=== PATIENT | female | born 1995 | race Caucasian/White ===

== ENCOUNTER 2019-01-19 10:13 | Inpatient (IN) | payer MEDICAID ==
[2019-01-19] MEDS: LACTATED RINGER'S 1,000 ML IV (10:54)
[2019-01-19 10:56] LABS: ADD MAN DIFF? NO
[2019-01-19] MEDS ORDERED: CARBOPROST 250 MCG INJ IM ×2 (11:00→13:00)
[2019-01-19] MEDS ORDERED: OXYTOCIN 30 UNITS/LR 500 ML IV ×2 (11:00→13:00)
[2019-01-19] MEDS ORDERED: CEFAZOLIN 2 GM/50 ML (PMX) 50 ML IVPB (11:00)
[2019-01-19] MEDS ORDERED: METHYLERGONOVINE 0.2 MG INJ IM ×2 (11:00→13:00)
[2019-01-19] MEDS ORDERED: MISOPROSTOL 200 MCG TAB PR ×2 (11:00→13:00)
[2019-01-19 11:05] LABS: WHITE BLOOD COUNT 9.8 10^3/ul (4.8-10.8)
[2019-01-19 11:05] LABS: BASOPHIL # 0.1 10^3/ul (0.0-0.1); BASOPHILS % 0.5 % (0.0-2.0); EOSINOPHILS # 0.1 10^3/ul (0.0-0.5); EOSINOPHILS % 1.4 % (0.0-7.0); HEMATOCRIT 36.2 % (37.0-47.0); HEMOGLOBIN 12.2 g/dl (12.0-16.0); LYMPHOCYTES # 1.8 10^3/ul (0.8-2.9); LYMPHOCYTES % 17.9 % (15.0-51.0); MEAN CORPUSCULAR HEMOGLOBIN 27.4 pg (29.0-33.0); MEAN CORPUSCULAR HGB CONC 33.7 g/dl (32.0-37.0); MEAN CORPUSCULAR VOLUME 81.2 fl (82.0-101.0); MEAN PLATELET VOLUME 10.4 fl (7.4-10.4); MONOCYTE # 1.2 10^3/ul (0.3-0.9); MONOCYTES % 11.7 % (0.0-11.0); NEUTROPHIL # 6.6 10^3/ul (1.6-7.5); PLATELET COUNT 229 10^3/UL (140-415); RED BLOOD COUNT 4.46 10^6/ul (4.20-5.40); RED CELL DISTRIBUTION WIDTH 13.4 % (11.5-14.5)
[2019-01-19 11:20] LABS: INR 0.88; PARTIAL THROMBOPLASTIN TIME 21.8 Sec (23.0-35.0); PT RATIO 0.9
[2019-01-19] MEDS ORDERED: OXYTOCIN 30 UNITS/LR 500 ML BAG IV (12:00)
[2019-01-19] MEDS ORDERED: PHENYLephrine (100 MCG/ML) 10ML SYG (12:00)
[2019-01-19] MEDS ORDERED: EPHEDrine 25 MG/5 ML SYG (12:00)
[2019-01-19] MEDS ORDERED: CEFAZOLIN 1 GM INJ (12:00)
[2019-01-19] MEDS ORDERED: morphine SULFATE/PF (10 MG/10 ML) INJ (12:05)
[2019-01-19] MEDS ORDERED: OXYCODONE/ACETAMINOPHEN (5/325) TAB PO (13:00)
[2019-01-19] MEDS ORDERED: NACL 0.9% 3 ML SYG IV (13:00)
[2019-01-19] MEDS: CEFAZOLIN 2 GM/50 ML (PMX) 50 ML IVPB ×2 (13:00→21:49)
[2019-01-19] MEDS: OXYTOCIN 30 UNITS/LR 500 ML IV ×4 (13:59→21:59)
[2019-01-19] MEDS ORDERED: HYDROmorphONE 0.5 MG/0.5 ML SYG IV ×2 (14:30)
[2019-01-19] MEDS ORDERED: ONDANSETRON 4 MG INJ IV ×2 (14:30)
[2019-01-19] MEDS ORDERED: FENTAnyl 50 MCG/ML VIAL IV ×3 (14:30)
[2019-01-19] MEDS ORDERED: DIPHENHYDRAMINE 50 MG INJ IV ×2 (14:30)
[2019-01-19] MEDS ORDERED: ALBUTEROL 0.083% (NEB) 2.5 MG/3 ML AMP HHN (14:30)
[2019-01-19] MEDS ORDERED: HYDROmorphONE 1 MG/5 ML IV SYRINGE IV ×2 (14:30)
[2019-01-19] MEDS ORDERED: NALOXONE (0.4 MG/ML) INJ IV (14:30)
[2019-01-19] MEDS ORDERED: METOCLOPRAMIDE 10 MG INJ IV (14:30)
[2019-01-19] MEDS: KETOROLAC 30 MG INJ IV (14:35)
[2019-01-19 18:17] LABS: RAPID PLASMA REAGIN NONREACTIVE (NR)
[2019-01-19] MEDS: SENNA/DOCUSATE NA (8.6MG/50MG) TAB PO (21:49)
[2019-01-19] MEDS: LANOLIN HPA 1 PKT TOP (22:02)
[2019-01-20] MEDS: OXYTOCIN 30 UNITS/LR 500 ML IV ×4 (01:30→13:30)
[2019-01-20] MEDS: CEFAZOLIN 2 GM/50 ML (PMX) 50 ML IVPB ×2 (04:38→14:17)
[2019-01-20] MEDS: KETOROLAC 30 MG INJ IV ×2 (04:39→13:03)
[2019-01-20 08:17] LABS: ADD MAN DIFF? NO
[2019-01-20 08:23] LABS: BASOPHILS % 0.3 % (0.0-2.0); EOSINOPHILS # 0.1 10^3/ul (0.0-0.5); EOSINOPHILS % 1.4 % (0.0-7.0); HEMATOCRIT 30.6 % (37.0-47.0); HEMOGLOBIN 10.3 g/dl (12.0-16.0); LYMPHOCYTES # 1.7 10^3/ul (0.8-2.9); LYMPHOCYTES % 17.7 % (15.0-51.0); MEAN CORPUSCULAR HEMOGLOBIN 27.2 pg (29.0-33.0); MEAN CORPUSCULAR HGB CONC 33.7 g/dl (32.0-37.0); MEAN CORPUSCULAR VOLUME 80.7 fl (82.0-101.0); MEAN PLATELET VOLUME 10.7 fl (7.4-10.4); MONOCYTE # 1.2 10^3/ul (0.3-0.9); MONOCYTES % 12.5 % (0.0-11.0); NEUTROPHIL # 6.5 10^3/ul (1.6-7.5); PLATELET COUNT 182 10^3/UL (140-415); RED BLOOD COUNT 3.79 10^6/ul (4.20-5.40); RED CELL DISTRIBUTION WIDTH 13.6 % (11.5-14.5)
[2019-01-20 08:23] LABS: WHITE BLOOD COUNT 9.7 10^3/ul (4.8-10.8)
[2019-01-20] MEDS: SENNA/DOCUSATE NA (8.6MG/50MG) TAB PO ×2 (10:18→21:49)
[2019-01-20] MEDS: IBUPROFEN 600 MG TAB PO (19:00)
[2019-01-20] MEDS: OXYCODONE/ACETAMINOPHEN (5/325) TAB PO (19:00)
[2019-01-20] MEDS: FERROUS SULFATE (EC) 325 MG TAB PO (21:50)
[2019-01-21] MEDS: IBUPROFEN 600 MG TAB PO ×5 (00:03→23:32)
[2019-01-21] MEDS: SENNA/DOCUSATE NA (8.6MG/50MG) TAB PO ×2 (11:03→22:09)
[2019-01-21] MEDS: FERROUS SULFATE (EC) 325 MG TAB PO ×2 (11:04→22:09)
[2019-01-21] MEDS: OXYCODONE/ACETAMINOPHEN (5/325) TAB PO (16:20)
[2019-01-22] MEDS: IBUPROFEN 600 MG TAB PO ×3 (05:45→18:09)
[2019-01-22] MEDS: FERROUS SULFATE (EC) 325 MG TAB PO ×2 (10:29→21:54)
[2019-01-22] MEDS: SENNA/DOCUSATE NA (8.6MG/50MG) TAB PO ×2 (10:29→21:54)
[2019-01-23] MEDS: IBUPROFEN 600 MG TAB PO ×3 (00:29→11:39)
[2019-01-23] MEDS: SENNA/DOCUSATE NA (8.6MG/50MG) TAB PO (08:50)
[2019-01-23] MEDS: FERROUS SULFATE (EC) 325 MG TAB PO (08:50)
== END 2019-01-23 16:34 | disposition home or self-care (01) | DRG 788 ==
LOC: OBT 10:13 → L-D 10:13 → OBT 10:30 → L-D 10:30 → PP1 15:54
PROVIDERS: Obstetrics & Gynecology
PROC: 10D00Z1 Extraction of Products of Conception, Low, Open Approach (ICD-10-PCS; principal; 2019-01-19 11:30)
DX: O34.211 Maternal care for low transverse scar from previous cesarean delivery (principal); O99.214 Obesity complicating childbirth; E66.9 Obesity, unspecified; G89.18 Other acute postprocedural pain; Z3A.38 38 weeks gestation of pregnancy; Z37.0 Single live birth
CPT/HCPCS: 85025; 85610; 85730; 86592; 86850; 86900; 86901